=== PATIENT | male | born 1990 | race Caucasian/White ===

== ENCOUNTER 2022-04-21 09:14 | Outpatient (CLI) | payer OTHER, SELFPAY ==
[2022-04-21 18:55] LABS: Erythrocyte Sedimentation Rate 3 mm/hr (0-20)
[2022-04-21 20:05] LABS: Rheumatoid Factor < 8.6 IU/ML (<12)
[2022-04-21 20:08] LABS: Alanine Aminotransferase 17 U/L (6-50); Alkaline Phosphatase 84 U/L (38-126); Anion Gap 13 mmol/L (8-16); Aspartate Amino Transferase 35 U/L (17-59); Bilirubin,Total 0.4 mg/dL (0.2-1.3); Blood Urea Nitrogen 15 mg/dL (9-20); Calcium 9.9 mg/dL (8.4-10.2); Carbon Dioxide 26 mmol/L (22-30); Chloride 102 mmol/L (98-107); Estimated Glomerular Filt Rate > 60; Glucose 106 mg/dL (65-110); Potassium 3.9 mmol/L (3.4-5.0); Sodium 141 mmol/L (137-145)
[2022-04-21 20:18] LABS: Hemoglobin A1C 4.7 % (<5.7)
== END 2022-04-21 09:15 | disposition home or self-care (01) ==
LOC: ANHGOSHLAB 09:16
PROVIDERS: PCP Family Medicine; Visit Provider Family Medicine
DX: R20.2 Paresthesia of skin (principal)
CPT/HCPCS: 36415; 80053; 82607; 82746; 83036; 84443; 85652; 86430

== ENCOUNTER → 2022-05-09 12:22 | Outpatient (CLI) | payer OTHER, SELFPAY ==
--- NOTE | ~2022-05-09 | MR_ITS ---
EXAMINATION: MR brain/brain stem wo/w con DATE: 05/09/2022 13:50 INDICATION: Paresthesias of the arms. TECHNIQUE: Magnetic resonance imaging (MRI) of the brain and brainstem was performed without and with 14 mL MultiHance intravenous contrast. COMPARISON: None. FINDINGS: There is no intracranial hemorrhage, acute infarction, or abnormal intracranial mass lesion . The ventricles are normal in size. The paranasal sinuses are clear. The orbits are normal. The mast oid air cells are normal. IMPRESSION: 1. Normal brain. Reviewed, dictated and finalized at location B. IMPRESSION: 1. Normal brain.
--- NOTE | ~2022-05-09 | MR_ITS ---
EXAMINATION: MR cervical spine wo/w con DATE: 05/09/2022 13:50 INDICATION: Paresthesias in the arms. TECHNIQUE: Magnetic resonance imaging (MRI) of the cervical spine was performed without and with 14 m L MultiHance intravenous contrast. COMPARISON: None FINDINGS: Bone alignment is normal. Vertebral body heights and intervertebral disc heights are normal . The spinal cord signal intensity is normal. The following disc levels are specifically discussed: C2-C3: The disc does not extend beyond the endplate margin. There is no uncovertebral joint osteoarth ritis. There is mild bilateral facet joint osteoarthritis. There is no neural foraminal stenosis. The re is no central canal stenosis. C3-C4: The disc does not extend beyond the endplate margin. There is no uncovertebral joint osteoarth ritis. There is no facet joint osteoarthritis. There is no neural foraminal stenosis. There is no alana tral canal stenosis. C4-C5: The disc does not extend beyond the endplate margin. There is mild left uncovertebral joint os teoarthritis. There is no facet joint osteoarthritis. There is no neural foraminal stenosis. There is no central canal stenosis. C5-C6: The disc does not extend beyond the endplate margin. There is no uncovertebral joint osteoarth ritis. There is no facet joint osteoarthritis. There is no neural foraminal stenosis. There is no alana tral canal stenosis. C6-C7: The disc does not extend beyond the endplate margin. There is no uncovertebral joint osteoarth ritis. There is no facet joint osteoarthritis. There is no neural foraminal stenosis. There is no alana tral canal stenosis. C7-T1: The disc does not extend beyond the endplate margin. There is no uncovertebral joint osteoarth ritis. There is mild bilateral facet joint osteoarthritis. There is no neural foraminal stenosis. The re is no central canal stenosis. IMPRESSION: 1. Normal spinal cord. 2. Mild polyarticular osteoarthritis. Reviewed, dictated and finalized at location B.
== END ==
PROVIDERS: PCP Family Medicine; Visit Provider Family Medicine
DX: M47.813 Spondylosis without myelopathy or radiculopathy, cervicothoracic region (principal); M48.03 Spinal stenosis, cervicothoracic region; R20.2 Paresthesia of skin
CPT/HCPCS: 70553; 72156; A9577

== ENCOUNTER → 2022-05-11 14:23 | Outpatient (CLI) | payer OTHER, SELFPAY ==
--- NOTE | ~2022-05-11 | MR_ITS ---
EXAMINATION: MR lumbar spine wo/w con DATE: 05/11/2022 15:27 INDICATION: Leg paresthesias. TECHNIQUE: Magnetic resonance imaging (MRI) of the lumbar spine was performed without and with 13 mL MultiHance intravenous contrast. COMPARISON: None FINDINGS: There is 5 degrees levocurvature of lumbar spine. Vertebral body heights are normal. There is mildly decreased disc height at L2-L3. The distal spinal cord signal intensity is normal. The conu s medullaris is at T12-L1. The following disc levels are specifically discussed: L1-L2: The disc does not extend beyond the endplate margin. There is mild bilateral facet joint osteo arthritis. There is no neural foraminal stenosis. There is no central canal stenosis. L2-L3: There is a left foraminal extrusion. There is mild bilateral facet joint osteoarthritis. There is mild left neural foraminal stenosis. There is no central canal stenosis. L3-L4: The disc does not extend beyond the endplate margin. There is no facet joint osteoarthritis. T here is no neural foraminal stenosis. There is no central canal stenosis. L4-L5: The disc is mildly bulging. There is mild bilateral facet joint osteoarthritis. There is mild bilateral neural foraminal stenosis. There is no central canal stenosis. L5-S1: The disc does not extend beyond the endplate margin. There is mild bilateral facet joint osteo arthritis. There is no neural foraminal stenosis. There is no central canal stenosis. IMPRESSION: 1. Mild lumbar spondylosis. Reviewed, dictated and finalized at location A. IMPRESSION: 1. Mild lumbar spondylosis.
--- NOTE | ~2022-05-11 | MR_ITS ---
EXAMINATION: MR thoracic spine wo/w con DATE: 05/11/2022 15:26 INDICATION: Upper and lower extremity paresthesias. TECHNIQUE: Magnetic resonance imaging (MRI) of the thoracic spine was performed without and with 13 m L MultiHance intravenous contrast. COMPARISON: None FINDINGS: There is 11 degrees levoscoliosis of upper thoracic spine. Vertebral body heights are rosaline l. Intervertebral disc heights are normal. The discs do not extend beyond the endplate margins. There is mild facet joint osteoarthritis at a few levels. No central canal stenosis or neural foraminal st enosis. IMPRESSION: 1. Thoracic levoscoliosis. Reviewed, dictated and finalized at location A. IMPRESSION: 1. Thoracic levoscoliosis.
== END ==
PROVIDERS: PCP Family Medicine; Visit Provider Family Medicine
DX: R20.2 Paresthesia of skin (principal); M41.84 Other forms of scoliosis, thoracic region; M47.816 Spondylosis without myelopathy or radiculopathy, lumbar region
CPT/HCPCS: 72157; 72158; A9577